=== PATIENT | male | born 1990 | race Caucasian/White ===

== ENCOUNTER 2017-03-12 00:46 | Emergency (ER) | payer BC, OTHER ==
[~2017-03-12] VITALS: Ht 167.6 cm; Wt 61.2 kg
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
--- NOTE | 2017-03-12 01:36 | NUR ---
PT'S HAND IS CLEANED AND DR. RAMOS IS AT THE BEDSIDE SPEAKING TO THE PT.
[2017-03-12] MEDS ORDERED: TDAP [DIPH/PERTUSSIS/TET] 0.5 ML VIAL IM ONE ×2 (01:38→02:00)
[2017-03-12] MEDS ORDERED: BACI/NEOM/POLY B OINT PKT 1 UDPKT PACKET TP ONE (02:00)
--- NOTE | 2017-03-12 02:20 | NUR ---
NEOSOPORIN APPLIED TO PT'S ABRASIONS, AREA COVERED WITH NON ADHERENT DRSG, AND WRAPPED WITH KERLEX.
--- NOTE | 2017-03-12 02:25 | NUR ---
Patient discharged to home in stable condition. Written and verbal after care instructions given. Patient verbalizes understanding of instruction. PT TO F/U WITH PYSCHIATRIST IN AM. PT AMBULATED OUT WITH A STEADY GAIT. VSS.
[2017-03-12 02:29] VITALS: BP 126/89
== END 2017-03-12 02:25 | disposition home or self-care (01) ==
LOC: ER 00:49
DX: S61.411A Laceration without foreign body of right hand, initial encounter (principal); S60.221A Contusion of right hand, initial encounter; F32.9 Major depressive disorder, single episode, unspecified; R45.851 Suicidal ideations; Z23 Encounter for immunization; W22.8XXA Striking against or struck by other objects, initial encounter; Y93.89 Activity, other specified; Y92.89 Other specified places as the place of occurrence of the external cause; Y99.8 Other external cause status
CPT/HCPCS: 73130-TC; 90715; A4606; Z7610

== ENCOUNTER 2020-01-22 15:59 | Emergency (ER) | payer BC, OTHER ==
[~2020-01-22] VITALS: Ht 165.1 cm; Wt 74.8 kg
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
--- NOTE | 2020-01-22 16:30 | NUR ---
CHUYITA SOLER AT BEDSIDE
[2020-01-22] MEDS ORDERED: LORAZEPAM INJ 2 MG/ML VIAL IV ONE (17:00)
[2020-01-22 17:04] LABS: BASOPHILS % (AUTO) 0.2 % (0.0-2.0); EOSINOPHILS % (AUTO) 0.7 % (0.0-6.0); HEMATOCRIT 47 % (39-51); HEMOGLOBIN 15.9 g/dL (13.5-17.5); LYMPHOCYTES # (AUTO) 0.7 /CMM (0.8-4.8); MEAN CORPUSCULAR HGB CONC 34 g/dl (31.0-36.0); MEAN CORPUSCULAR VOLUME 83 fL (80-96); MONOCYTES # (AUTO) 0.6 /CMM (0.1-1.30); MONOCYTES % (AUTO) 3.7 % (2.0-12.0); NEUTROPHILS # (AUTO) 13.5 /CMM (1.8-8.9); NEUTROPHILS % (AUTO) 90.4 % (43.0-81.0); PLATELET COUNT (AUTO) 240 /CMM (150-450); RED BLOOD CELL COUNT(AUTO) 5.69 MIL/uL (4.5-6.0); WHITE BLOOD COUNT (AUTO) 14.9 K/uL (4.3-11.0)
[2020-01-22 17:26] LABS: CALCIUM, SERUM 9.3 mg/dL (8.5-10.1); CARBON DIOXIDE 28 mmol/L (21-32); CHLORIDE 102 mmol/L (98-107); GLUCOSE 112 mg/dL (74-106); POTASSIUM 3.8 mmol/L (3.5-5.1); SODIUM SERUM 141 mmol/L (136-145); UREA NITROGEN, BLOOD 9 mg/dL (7-18)
[2020-01-22 17:40] LABS: ALANINE AMINOTRANSFERASE 23 U/L (12-78); ALBUMIN 4.3 g/dL (3.4-5.0); ALKALINE PHOSPHATASE 61 U/L (46-116); ASPARTATE AMINOTRANSFERASE 11 U/L (15-37); BILIRUBIN,DIRECT 0.1 mg/dL (0.0-0.2); BILIRUBIN,TOTAL 0.4 mg/dL (0.2-1.0); TOTAL PROTEIN, SERUM 7.8 g/dL (6.4-8.2)
[2020-01-22] MEDS ORDERED: LORAZEPAM 1 MG TABLET ONE (17:56)
[2020-01-22] MEDS: IV NS 0.9% 1,000 ML BAG IV ONE (18:00)
[2020-01-22] MEDS: LORAZEPAM 1 MG TABLET PO ONE (18:03)
--- NOTE | 2020-01-22 18:14 | NUR ---
Patient discharged to home in stable condition. Written and verbal after care instructions given. Patient verbalizes understanding of instruction.
[2020-01-22 18:17] VITALS: BP 144/89
== END 2020-01-22 18:15 | disposition home or self-care (01) ==
LOC: ER 15:59
DX: F14.10 Cocaine abuse, uncomplicated (principal); R00.2 Palpitations; R42 Dizziness and giddiness; R07.89 Other chest pain; D72.829 Elevated white blood cell count, unspecified; F41.9 Anxiety disorder, unspecified; F32.9 Major depressive disorder, single episode, unspecified
CPT/HCPCS: 36415; 71045-TC; 80048-TC; 80076-TC; 84484-TC; 85025-TC